=== PATIENT | female | born 1955 | race Caucasian/White ===

== ENCOUNTER → 2016-05-17 | Outpatient (CLI) | payer OTHER ==
[~2016-05-17] MED LIST: CIPR500T4 PO; DIET PILL; HYDR-3720 PO; HYDR1TAB PO; LEVO125T; LVT.025T PO; ONDA8TAB13 PO; PHEN200T27 PO; TRAM50TA2; TRAM50TA2 PO
--- OUTSIDE RECORDS SUMMARY | 2016-05-17 13:22 | XMS REPORT | Continuity of Care Document ---
Author Author [facility] Organization [facility] Address Unknown Phone Unavailable Care Team Providers Care Sour Bleaching Pleater Name Role Phone MACK CROW MD PCP Insurance Providers Payer Name Policy Number Subscriber Name Relationship UMR [id number] Nely Jarquin 18 Self / Same As Patient Advance Directives Directive Response Recorded Date/Time Advance Directives No 01/09/14 12:52pm Health Care Power of Labor Economics Professor No 01/09/14 12:52pm Organ Donor Yes 01/09/14 12:52pm Resuscitation Status Full Code 01/09/14 12:52pm Problems Medical Problems Problem Onset Date Status Ureterolithiasis Unknown Active Medications Medication Dose Route Sig Days/Qty Instructions Order Date Discontinued Date Status Levothyroxine Sodium 12/29/08 12/29/08 Discontinued Levothyroxine Sodium 100 Mcg PO DAILY 12/29/08 Active Tramadol Hcl 50 08/11/09 01/09/14 Discontinued Acetaminophen/Hydrocodone Bitart 1 - 2 Each PO Q4HR PRN 20 Qty 01/09/14 Discontinued [Diet Pill] 01/09/14 Active Phenazopyridine HCl 1 Each PO THREE TIMES A DAY PRN SPASMS 15 Qty 01/09 Active Ciprofloxacin Hcl 500 Mg PO TWICE A DAY 20 Qty 01/09/14 Active Hydrocodone Bit/Acetaminophen 1 Tab PO EVERY 4HRS PRN PAIN 14 Qty 01/09 Active Ondansetron 8 Mg PO EVERY 6 HOURS PRN NAUSEA/VOMITING 10 Qty 01/09/14 Active Social History Social History Problem Response Recorded Date/Time Alcohol Use Denies Use 01/09/2014 12:52pm Recreational Drug Use No 01/09/2014 12:52pm Recent Foreign Travel No 01/09/2014 12:46pm Recent Infectious Disease Exposure No 01/09/2014 12:46pm Smoking Status Current Everyday Smoker 01/09/2014 12:52pm Query Response Start Date Stop Date Smoking Status Current Everyday Smoker Hospital Discharge Instructions No hospital discharge instructions. Plan of Care No plan of care. Functional Status No functional status results. Allergies, Adverse Reactions, Alerts Allergen Type Severity Reaction Status Last Updated No Known Drug Allergies Active 12/29/08 Immunizations No immunization records. Vital Signs Acute Vital Signs Vital Response Date/Time Temperature (Fahrenheit) 97.2 degrees F (97.6 - 99.5) Temperature (Calculated Celsius) 36.45200 degrees C (36.4 - 37.5) Temperature Source Temporal Pulse Rate (adult) 76 bpm (60 - 90) Respiratory Rate 18 bpm (12 - 24) O2 Sat by Pulse Oximetry 100 % (88 - 100) Blood Pressure 172/93 mm Hg Pain Pain Intensity 6 Height (Feet) 5 feet Height (Inches) 7 inches Height (Calculated Centimeters) 170.877442 cm Weight (Pounds) 180 pounds Weight (Calculated Kilograms) 81.098633 kilograms Calculated BMI 28.19 Results Test Source Date Result Interp. Ref. Range Comments Alanine Aminotransferase (ALT/SGPT) August 11, 2009 3:22pm 26 U/L L 30-65 Albumin August 11, 2009 3:22pm 3.6 G/DL N 3.4-5.0 Alkaline Phosphatase August 11, 2009 3:22pm 106 U/L N 50-136 Aspartate Amino Transf (AST/SGOT) August 11, 2009 3:22pm 26 U/L N 15-37 BUN/Creatinine Ratio August 12, 2009 4:47pm 24 - Basophils # (Auto) August 12, 2009 4:47pm 0.0 10^3/uL N 0.0-0.1 Comments to Respiratory Therapy Aide: N Basophils (%) (Auto) August 12, 2009 4:47pm 0 % N 0-10 Comments to Respiratory Therapy Aide: N Blood Urea Nitrogen August 12, 2009 4:47pm 19 MG/DL H 7-18 Calcium Level August 12, 2009 4:47pm 9.8 MG/DL N 8.5-10.1 Carbon Dioxide Level August 12, 2009 4:47pm 29 MMOL/L N 21-32 Chloride Level August 12, 2009 4:47pm 105 MMOL/L N 101-110 Creatinine August 12, 2009 4:47pm 0.8 MG/DL N 0.6-1.3 Eosinophils # (Auto) August 12, 2009 4:47pm 0.1 10^3/uL N 0.0-0.3 Comments to Respiratory Therapy Aide: N Eosinophils (%) (Auto) August 12, 2009 4:47pm 1 % N 0-10 Comments to Respiratory Therapy Aide: N Glucose Level August 12, 2009 4:47pm 112 MG/DL N 70-126 Hematocrit August 12, 2009 4:47pm 40 % N 35-52 Comments to Respiratory Therapy Aide: N Hemoglobin August 12, 2009 4:47pm 13.9 G/DL N 11.5-16.0 Comments to Respiratory Therapy Aide: N Lymphocytes # (Auto) August 12, 2009 4:47pm 1.9 X 10^3 N 1.0-4.0 Comments to Respiratory Therapy Aide: N Lymphocytes (%) (Auto) August 12, 2009 4:47pm 14 % N 12-44 Comments to Respiratory Therapy Aide: N Mean Corpuscular Hemoglobin August 12, 2009 4:47pm 31 PG N 25-34 Comments to Respiratory Therapy Aide: N Mean Corpuscular Hemoglobin Concent August 12, 2009 4:47pm 35 G/DL N 32-36 Comments to Respiratory Therapy Aide: N Mean Corpuscular Volume August 12, 2009 4:47pm 90 FL N 80-99 Comments to Respiratory Therapy Aide: N Mean Platelet Volume August 12, 2009 4:47pm 9.4 FL N 7.4-10.4 Comments to Respiratory Therapy Aide: N Monocytes # (Auto) August 12, 2009 4:47pm 1.1 X 10^3 H 0.0-1.0 Comments to Respiratory Therapy Aide: N Monocytes (%) (Auto) August 12, 2009 4:47pm 8 % N 0-12 Comments to Respiratory Therapy Aide: N Neutrophils # (Auto) August 12, 2009 4:47pm 10.7 X 10^3 H 1.8-7.8 Comments to Respiratory Therapy Aide: N Neutrophils (%) (Auto) August 12, 2009 4:47pm 77 % H 42-75 Comments to Respiratory Therapy Aide: N Number of Stones August 14, 2009 4:44pm 2 - Platelet Count August 12, 2009 4:47pm 338 10^3/uL N 130-400 Comments to Respiratory Therapy Aide: N Potassium Level August 12, 2009 4:47pm 4.1 MMOL/L N 3.6-5.0 Red Blood Count August 12, 2009 4:47pm 4.42 10^6/uL N 4.35-5.85 Comments to Respiratory Therapy Aide: N Red Cell Distribution Width August 12, 2009 4:47pm 12.6 % N 10.0-14.5 Comments to Respiratory Therapy Aide: N Sodium Level August 12, 2009 4:47pm 140 MMOL/L N 135-145 Stone Brushite September 07, 2009 10:00am 3.55 H - Stone Calcium September 07, 2009 10:00am 351 H MG/DAY - Stone Composition August 14, 2009 4:44pm SEE FOOTNOTE % - Calculi composed primarily of:70% calcium oxalate monohydrate, 20% calcium oxalate dihydrate, and 10% calcium phosphate (hydroxy- and carbonate- apatite). Performed by [facility], [address] [place] [id number] [email or web address], Alejandrina Urena MD Lab. Director Stone Oxalate September 07, 2009 10:00am 32 MG/DAY - Stone Size August 14, 2009 4:44pm 1 to 4 MM - Stone Sodium Acid Urate September 07, 2009 10:00am 4.29 H - Stone Struvite September 07, 2009 10:00am 3.09 - Stone Uric Acid September 07, 2009 10:00am 561 MG/DAY - Stone Weight August 14, 2009 4:44pm 13 MG - TEST INFORMATION: Calculi ( Stone) analysis Human and/oranimal calculi are the products of physiological processes that yield crystalline compounds in a matrix of biological compounds and blood. The clinically significant crystalline components identified in calculi samples are documented on the sample report. Matrix components are not reported. For related information, see [id number] Total Bilirubin August 11, 2009 3:22pm 0.4 MG/DL N 0.0-1.0 Total Protein August 11, 2009 3:22pm 7.3 G/DL N 6.4-8.2 Urine Ammonium 24 Hour September 07, 2009 10:00am 21 MEQ/DAY - Urine Bacteria August 11, 2009 2:50pm FEW H - Has specimen been collected/ obtained? YSpecimen Description CLEAN CATCH Urine Bilirubin August 11, 2009 2:50pm NEGATIVE - Has specimen been collected/obtained? YSpecimen Description CLEAN CATCH Urine Casts August 11, 2009 2:50pm NONE - Has specimen been collected/ obtained? YSpecimen Description CLEAN CATCH Urine Citrate 24 Hour September 07, 2009 10:00am 1702 MG/DAY - Urine Clarity August 11, 2009 2:50pm SLIGHTLY CLOUDY - Has specimen been collected/obtained? YSpecimen Description CLEAN CATCH Urine Color August 11, 2009 2:50pm YELLOW - Has specimen been collected/ obtained? YSpecimen Description CLEAN CATCH Urine Creatinine 24 Hour September 07, 2009 10:00am 1141 MG/DAY - Urine Crystals August 11, 2009 2:50pm NONE - Has specimen been collected /obtained? YSpecimen Description CLEAN CATCH Urine Culture Indicated August 11, 2009 2:50pm NO - Has specimen been collected/obtained? YSpecimen Description CLEAN CATCH Urine Glucose (UA) August 11, 2009 2:50pm NEGATIVE - Has specimen been collected/obtained? YSpecimen Description CLEAN CATCH Urine Ketones August 11, 2009 2:50pm NEGATIVE - Has specimen been collected/obtained? YSpecimen Description CLEAN CATCH Urine Leukocyte Esterase August 11, 2009 2:50pm TRACE H - Has specimen been collected/obtained? YSpecimen Description CLEAN CATCH Urine Magnesium 24 Hour September 07, 2009 10:00am 149 MG/DAY - Urine Mucus August 11, 2009 2:50pm LARGE H - Has specimen been collected/ obtained? YSpecimen Description CLEAN CATCH Urine Nitrite August 11, 2009 2:50pm NEGATIVE - Has specimen been collected/obtained? YSpecimen Description CLEAN CATCH Urine Other August 11, 2009 2:50pm FEW SPERM H - Has specimen been collected/obtained? YSpecimen Description CLEAN CATCH Urine Phosphorus 24 Hour September 07, 2009 10:00am 814 MG/DAY - Urine Potassium 24 Hour September 07, 2009 10:00am 47 MEQ/DAY - Urine Test August 14, 2009 8:35am NEGATIVE - Urine Protein August 11, 2009 2:50pm TRACE - Has specimen been collected /obtained? YSpecimen Description CLEAN CATCH Urine RBC August 11, 2009 2:50pm 25-50 /HPF H - Has specimen been collected/obtained? YSpecimen Description CLEAN CATCH Urine Sodium 24 Hour September 07, 2009 10:00am 246 H MEQ/DAY - Urine Specific [place] August 11, 2009 2:50pm 1.015 L - Has specimen been collected/obtained? YSpecimen Description CLEAN CATCH Urine Squamous Epithelial Cells August 11, 2009 2:50pm 5-10 - Has specimen been collected/obtained? YSpecimen Description CLEAN CATCH Urine Total Volume 24 Hours September 07, 2009 10:00am 1.59 L L/DAY - Urine Urobilinogen August 11, 2009 2:50pm NORMAL MG/DL - Has specimen been collected/obtained? YSpecimen Description CLEAN CATCH Urine WBC August 11, 2009 2:50pm 2-5 /HPF - Has specimen been collected/ obtained? YSpecimen Description CLEAN CATCH Urine pH August 11, 2009 2:50pm 6.5 - Has specimen been collected/ obtained? YSpecimen Description CLEAN CATCH White Blood Count August 12, 2009 4:47pm 13.9 10^3/uL H 4.3-11.0 Comments to Respiratory Therapy Aide: N Urine Stone Risk September 07, 2009 10:00am SEE FOOTNOTE - HYPERCALCIURIC NEPHROLITHIASISGraphical report will follow under separate cover. Citric Acid: this test(s) was performed using a kit that has not been cleared or approved by the FDA. The analytical performance characteristics of this test have been determined by [facility]. This test should not be used for diagnosis without confirmation by other medically established means. THIS TEST WAS PERFORMED AT: [facility] [address] [place] [id number] Ben Bernard MD, FCAP Stone Calcium Oxalate September 07, 2009 10:00am 1.91 - Lab Scanned Report September 07, 2009 3:33pm Referred Lab Report [id number] - Estimat Glomerular Filtration Rate August 11, 2009 3:22pm > 60 - GFR INTERPRETIVE DATA UNITS FOR ESTIMATED GFR (eGFR): mL/min/1.73 M2 REFERENCE RANGE FOR ESTIMATED GFR (eGFR) eGFR NORMAL eGFR >60 MODERATELY DECREASED eGFR 30-59 SEVERLY DECREASED eGFR 15-29 KIDNEY FAILURE <15 (OR DIALYSIS) Urine Uric Acid Saturation Ratio September 07, 2009 10:00am 0.38 - Urine Stone Risk Review September 07, 2009 10:00am SEE FOOTNOTE - HYPERCALCIURIA, LOW URINE VOLUME, HIGH URINARY SODIUM Urine pH 24 Hour September 07, 2009 10:00am 6.7 - Urine Supersaturation Interpret September 07, 2009 10:00am SEE FOOTNOTE - BRUSHITE (CA PHOSPHATE), MONOSODIUM URATE Urine RBC (Auto) August 11, 2009 2:50pm 3+ H - Has specimen been collected /obtained? YSpecimen Description CLEAN CATCH Stone Description August 14, 2009 4:44pm SEE FOOTNOTE - Specimen consists of two, small, brown/miller,irregular calculi fragments. Urine Sulfites September 07, 2009 10:00am 18 MMOL/DAY - MRSA Screen Nasal August 14, 2009 8:35am MRSA not isolated Procedures No known history of procedures. Encounters Encounter Location Date/Time Departed Emergency Room Via [facility] 01/09/14 12:32pm Recent Diagnosis
--- NOTE | 2016-05-18 10:08 | ECHOCARDIOGRAPHY REPORT ---
PROCEDURE PHYSICIAN: TIM VARMA DATE OF PROCEDURE: 05/17/2016 TWO DIMENSIONAL ECHOCARDIOGRAM REPORT PRIMARY PHYSICIAN: OTHER PHYSICIAN: REFERRING PHYSICIAN: Dr. Jimenez ORDERING PHYSICIAN: INDICATION FOR THE PROCEDURE: Hypertension. MEASUREMENTS DERIVED VALUES LV DIAMETER (LAX) NORMALS NORMALS Diastolic 3.5 (3.6-5.2) Eject. Fract. 60% (60%+/-6%) Systolic (2.3-3.9) Diastolic Vol. % Shortening (0.22-0.42) Systolic Vol. Aortic Root IVS THICKNESS Diastolic 1. (0.6-1.1) LVPW THICKNESS Diastolic 1. (0.6-1.1) LA DIAMETER Systolic 3. (2.1-3.7) FINDINGS: 1. Technical quality is good. 2. The left ventricle is normal in size with normal contractility. Systolic function appeared to be normal. Estimated ejection fraction 60%. 3. The left atrium is normal in size. No clot or thrombus were seen within the left atrium. 4. The right atrium and right ventricle are normal in size. No clot or thrombus were seen within the right side. 5. Mitral valve is normal in morphology with mild mitral regurgitation noted by color Doppler flow. No mitral valve prolapse. No mitral valve stenosis. 6. Aortic valve is trileaflet with normal opening and closing pattern. No significant aortic stenosis or regurgitation was seen. 7. Tricuspid valve is normal in morphology with mild tricuspid regurgitation noted by color Doppler flow. Doppler across tricuspid valve estimated pulmonary artery pressure of 24+ right atrial pressure. 8. Pulmonic valve is functioning normally. 9. No pericardial effusion. CONCLUSION: 1. Normal left ventricular size and systolic function. Estimated ejection fraction 60%. 2. Mild mitral and tricuspid regurgitation. 3. Estimated pulmonary artery pressure of 30 mmHg. Job ID: [id number] Dictated Date: 05/18/2016 08:21:45 Director Of Maintenance Date: 05/18/2016 10:04:05 / bigg
== END ==
LOC: CARD 09:31
PROVIDERS: ATTEND Internal Medicine Cardiovascular Disease
DX: E78.2 Mixed hyperlipidemia (principal); R00.2 Palpitations; Z72.0 Tobacco use; E03.9 Hypothyroidism, unspecified; R42 Dizziness and giddiness; Z82.49 Family history of ischemic heart disease and other diseases of the circulatory system
CPT/HCPCS: 93306

== ENCOUNTER → 2016-05-18 | Outpatient (CLI) | payer OTHER ==
[~2016-05-18] MED LIST changes: +CATHETER FLUSH 10 ML SYR IV PRN
--- OUTSIDE RECORDS SUMMARY | 2016-05-18 07:54 | XMS REPORT | Continuity of Care Document ---
Author Author [facility] Organization [facility] Address Unknown Phone Unavailable Care Team Providers Care Academic Affairs Coordinator Name Role Phone MACK CROW MD PCP Insurance Providers Payer Name Policy Number Subscriber Name Relationship UMR [id number] Nely Jarquin 18 Self / Same As Patient Advance Directives Directive Response Recorded Date/Time Advance Directives No 01/09/14 12:52pm Health Care Power of Accounts Payable Supervisor No 01/09/14 12:52pm Organ Donor Yes 01/09/14 [...] F (97.6 - 99.5) Temperature (Calculated Celsius) 36.58654 degrees C (36.4 - 37.5) Temperature Source Temporal Pulse Rate (adult) 76 bpm (60 - 90) Respiratory Rate 18 bpm (12 - 24) O2 Sat by Pulse Oximetry 100 % (88 - 100) Blood Pressure 172/93 mm Hg Pain Pain Intensity 6 Height (Feet) 5 feet Height (Inches) 7 inches Height (Calculated Centimeters) 170.490429 cm Weight (Pounds) 180 pounds Weight (Calculated Kilograms) 81.296589 kilograms Calculated BMI 28.19 Results Test Source [...] 4:47pm 0.0 10^3/uL N 0.0-0.1 Comments to [employer]: N Basophils (%) (Auto) August 12, 2009 4:47pm 0 % N 0-10 Comments to [employer]: N Blood Urea Nitrogen August 12, 2009 [...] 4:47pm 0.1 10^3/uL N 0.0-0.3 Comments to [employer]: N Eosinophils (%) (Auto) August 12, 2009 4:47pm 1 % N 0-10 Comments to [employer]: N Glucose Level August 12, 2009 4:47pm 112 MG/DL N 70-126 Hematocrit August 12, 2009 4:47pm 40 % N 35-52 Comments to [employer]: N Hemoglobin August 12, 2009 4:47pm 13.9 G/DL N 11.5-16.0 Comments to [employer]: N Lymphocytes # (Auto) August 12, 2009 4:47pm 1.9 X 10^3 N 1.0-4.0 Comments to [employer]: N Lymphocytes (%) (Auto) August 12, 2009 4:47pm 14 % N 12-44 Comments to [employer]: N Mean Corpuscular Hemoglobin August 12, 2009 4:47pm 31 PG N 25-34 Comments to [employer]: N Mean Corpuscular Hemoglobin Concent August 12, 2009 4:47pm 35 G/DL N 32-36 Comments to [employer]: N Mean Corpuscular Volume August 12, 2009 4:47pm 90 FL N 80-99 Comments to [employer]: N Mean Platelet Volume August 12, 2009 4:47pm 9.4 FL N 7.4-10.4 Comments to [employer]: N Monocytes # (Auto) August 12, 2009 4:47pm 1.1 X 10^3 H 0.0-1.0 Comments to [employer]: N Monocytes (%) (Auto) August 12, 2009 4:47pm 8 % N 0-12 Comments to [employer]: N Neutrophils # (Auto) August 12, 2009 4:47pm 10.7 X 10^3 H 1.8-7.8 Comments to [employer]: N Neutrophils (%) (Auto) August 12, 2009 4:47pm 77 % H 42-75 Comments to [employer]: N Number of Stones August 14, 2009 4:44pm 2 - Platelet Count August 12, 2009 4:47pm 338 10^3/uL N 130-400 Comments to [employer]: N Potassium Level August 12, 2009 4:47pm 4.1 MMOL/L N 3.6-5.0 Red Blood Count August 12, 2009 4:47pm 4.42 10^6/uL N 4.35-5.85 Comments to [employer]: N Red Cell Distribution Width August 12, 2009 4:47pm 12.6 % N 10.0-14.5 Comments to [employer]: N Sodium Level August 12, 2009 4:47pm 140 MMOL/L N 135-145 Stone Brushite September 07, 2009 10:00am 3.55 H - Stone Calcium September 07, 2009 10:00am 351 H MG/DAY - Stone Composition August 14, 2009 4:44pm SEE FOOTNOTE % - Calculi composed primarily of:70% calcium oxalate monohydrate, 20% calcium oxalate dihydrate, and 10% calcium phosphate (hydroxy- and carbonate- apatite). Performed by [facility], [address] [place] [id number] [email or web address], Alejandrina Urena MD Lab. Director Stone Oxalate [...] are not reported. For related information, see [id number] Total Bilirubin August 11, 2009 3:22pm 0.4 [...] 10:00am 246 H MEQ/DAY - Urine Specific [place] August 11, 2009 2:50pm 1.015 L - [...] 4:47pm 13.9 10^3/uL H 4.3-11.0 Comments to [employer]: N Urine Stone Risk September 07, 2009 [...] THIS TEST WAS PERFORMED AT: [facility] [address] [place] [id number] Ben Bernard MD, FCAP Stone Calcium Oxalate September 07, 2009 10:00am 1.91 - Lab Scanned Report September 07, 2009 3:33pm Referred Lab Report [id number] - Estimat Glomerular Filtration Rate August 11, [...] Encounter Location Date/Time Departed Emergency Room Via [facility] 01/09/14 12:32pm Recent Diagnosis
[2016-05-18 09:35] VITALS: BP 188/90
--- NOTE | 2016-05-18 15:07 | STRESS TEST ---
PROCEDURE PHYSICIAN: TIM VARMA EXERCISE MYOVIEW STRESS TEST DATE OF PROCEDURE: 05/18/2016 REFERRING PHYSICIAN: Dr. Jimenez. INDICATION FOR THE PROCEDURE: Hyperlipidemia, bradycardia. Baseline heart rate: 57 baseline blood pressure: 134/77. Baseline EKG: Sinus rhythm with no ischemic changes. SUMMARY: The patient was injected with 10.98 mCi of technetium 99 Myoview and the resting images were obtained. Then the patient started exercising with a baseline heart rate, blood pressure and EKG mentioned above. At minute 4, the patient was injected with 31.8 mCi of technetium 99 Myoview. The patient was able to finish a total of 5 minutes on standard Mundo protocol, achieving maximum heart rate of 144, which is 91% of maximum expected heart rate. With peak exercise level, blood pressure was 188/90, EKG was showing minimal nondiagnostic changes. During recovery, heart rate and blood pressure returned to baseline. EKG returned to baseline. The resting and stress images were reviewed and compared in the short axis, horizontal long axis, and vertical long axis views. Review of the images showed good radiotracer uptake with no ischemia or infarction on SPECT images. SSS is 0. TID value 0.91. On the gated images, the left ventricle appeared to be normal size with normal contractility. Calculated ejection fraction 70%. CONCLUSION: 1. Fair exercise tolerance a total of 5 minutes on standard Mundo protocol. Total 7 METs achieving 91% of maximum expected heart rate. 2. Appropriate heart rate and blood pressure response to exercise. Returned to baseline during recovery. 3. Nondiagnostic EKG changes with exercise. Returned to baseline during recovery. 4. No ischemia or infarction on SPECT images. 5. Normal left ventricular size with normal contractility. Calculated ejection fraction 70%. Job ID: [id number] Dictated Date: 05/18/2016 13:56:00 Tumbler Tender Date: 05/18/2016 15:03:52 / bigg
== END ==
LOC: CARD 07:51
PROVIDERS: ATTEND Internal Medicine Cardiovascular Disease
DX: E78.2 Mixed hyperlipidemia (principal); R00.2 Palpitations; E03.9 Hypothyroidism, unspecified; R42 Dizziness and giddiness; Z72.0 Tobacco use; Z82.49 Family history of ischemic heart disease and other diseases of the circulatory system
CPT/HCPCS: 78452; 93017

== ENCOUNTER 2018-11-18 14:23 | Inpatient (IN) | payer OTHER ==
[~2018-11-18] VITALS: Ht 170.2 cm; Wt 88.9 kg
[~2018-11-18 14:23] MED LIST changes: -CATHETER FLUSH 10 ML SYR IV PRN; +CLOPIDOGREL 300 MG (PLAVIX) TABLET PO ONE; +HEParin 1000 UNIT/ML (10ML VIAL) FOR BOLUS ONE; +HEParin DRIP 25000 UNIT/500ML 500 ML IV ONE; +fentaNYL INJECTION 100 MCG/2 ML AMP ONE
[2018-11-18] MEDS ORDERED: morphine INJ 10 MG/ML 1ML (SYR OR VIAL) IV STA (14:29)
[2018-11-18] MEDS ORDERED: CLOPIDOGREL 300 MG (PLAVIX) TABLET PO ONE ×2 (14:30→16:20)
[2018-11-18] MEDS ORDERED: HEParin 1000 UNIT/ML (10ML VIAL) FOR BOLUS IV SCH (14:30)
[2018-11-18] MEDS ORDERED: NS IV 1000 ML 1,000 ML IV ONE ×2 (14:34→15:33)
[2018-11-18] MEDS ORDERED: ATROPINE INJECTION 1 MG/10 ML SYR (ABBOTT) INJ ONE (14:38)
[2018-11-18] MEDS ORDERED: EPINEPHrine 0.1 MG/ML 10 ML (HOSPIRA) SYR IJ ONE (14:38)
--- NOTE | 2018-11-18 14:42 | ED Chest Pain ---
General Chief Complaint: Cardiac/General Problems Stated Complaint: STEMI Nursing Triage Note: ARRIVED VIA EMS FROM HOME WITH COMPLAINTS OF CHEST PAIN X 1.H HOUR. ASA 324 MG GIVEN IN ROUTE ET X1 NITRO AT HOME NO OTHER GIVEN NITRO GIVEN DUE TO HYPOTENSION Nursing Sepsis Screen: No Definite Risk Source: patient, EMS History of Present Illness Date Seen by Provider: Nov 18, 2018 Time Seen by Provider: 14:23 Initial Comments PT ARRIVES VIA [facility] FROM HOME C/O CHEST PAIN IN CENTER OF CHEST, BEGAN APPROXIMATELY 1 1/2 HOURS AGO, WHILE DOING DISHES + SWEATS + NAUSEA, VOMITED X 1 NO SHORTNESS OF BREATH C/O GENERALIZED WEAKNESS NO SYNCOPE NO PALPITATIONS NO DIZZINESS NO HISTORY OF SIMILAR HAS HISTORY OF HTN, OTHERWISE NO CARDIAC HISTORY BOYFRIEND GAVE HER 2 OF HIS NTG WITHOUT RELIEF PT WAS HYPOTENSIVE ON EMS ARRIVAL AT [facility] GAVE 324 MG ASPIRIN, BUT NO NTG AND NO PAIN MEDICATION DUE TO HYPOTENSION Allergies and Home Medications Allergies Coded Allergies: No Known Drug Allergies (Verified , 12/29/08) Home Medications Ciprofloxacin Hcl 500 Mg Tablet, 500 MG PO BID Prescribed by: ZAMZAM SALEEM on 01/09/14 1440 Hydrocodone Bit/Acetaminophen 1 Tab Tablet, 1 TAB PO Q4H PRN for PAIN Prescribed by: ZAMZAM SALEEM on 01/09/14 1440 Levothyroxine Sodium 25 Mcg Tablet, 100 MCG PO DAILY, (Reported) Ondansetron 8 Mg Tab.rapdis, 8 MG PO Q6H PRN for NAUSEA/VOMITING Prescribed by: ZAMZAM SALEEM on 01/09/14 1448 Phenazopyridine Hcl 200 Mg Tablet, 1 EACH PO TID PRN for SPASMS Prescribed by: ZAMZAM SALEEM on 01/09/14 1440 Tramadol Hcl 50 Mg Tablet, 50-100 MG PO Q6H PRN for PAIN Prescribed by: JEFF HALLMAN on 06/30/14 1050 Patient Home Medication List Home Medication List Reviewed: Yes Review of Systems Review of Systems Constitutional: see HPI, diaphoresis, malaise, weakness Respiratory: No Symptoms Reported; Denies Shortness of Air Cardiovascular: See HPI, Chest Pain; Denies Edema, Denies Irregular Heart Rate, Denies Lightheadedness, Denies Palpitations, Denies Syncope Gastrointestinal: See HPI; Denies Abdominal Pain; Nausea, Vomiting Genitourinary: No Symptoms Reported Musculoskeletal: no symptoms reported Skin: no symptoms reported Psychiatric/Neurological: No Symptoms Reported Endocrine: No Symptoms Reported Hematologic/Lymphatic: No Symptoms Reported Past Wflwtjh-Kdjxun-Xuiafy Hx Patient Social History Alcohol Use: Occasionally Uses Recreational Drug Use: No Smoking Status: Current Everyday Smoker (1/2 PPD) Recent Foreign Travel: No Contact w/Someone Who Travel: No Recent Infectious Disease Expo: No Recent Hopitalizations: Yes Immunizations Up To Date Tetanus Booster (TDap): Unknown Past Medical History Surgeries: Yes (HYST/BSO; LEFT ANKLE FX/REPAIR; BTL; LAP CHOLECYSTECTOMY; LITHOTRIPSY) Gallbladder, Hysterectomy, Oophorectomy, Orthopedic, Renal, Tubal Ligation Respiratory: No Cardiac: Yes Hypertension Neurological: No Reproductive Disorders: No Genitourinary: Yes Kidney Stones Gastrointestinal: No Musculoskeletal: Yes (FX OF LEFT ANKLE) Fractures Endocrine: Yes Hypothyroidsim HEENT: No Cancer: No Psychosocial: No Integumentary: No Blood Disorders: No Family Medical History Patient reports no known family medical history. Physical Exam Vital Signs Vital Signs - First Documented 11/18/18 11/18/18 14:23 14:32 Temp 98.0 Pulse 49 Resp 16 B/P (MAP) 87/59 (68) Pulse Ox 98 O2 Delivery Room Air O2 Flow Rate 2.00 Capillary Refill : Less Than 3 Seconds Height, Weight, BMI Height: 5'7.00" Weight: 181lbs. oz. 82.378094cj; BMI Method:Stated General Appearance: Mild Distress, Obese, Other (APPEARS LETHARGIC, SKIN DAMP AND PALE) Neck: Normal Inspection Respiratory: Normal Breath Sounds, No Accessory Muscle Use, No Respiratory Distress Cardiovascular: Regular Rate, Rhythm, No Edema, No JVD, No Murmur, Normal Peripheral Pulses Gastrointestinal: Non Tender, Soft Extremity: Normal Capillary Refill, Normal Inspection, Normal Range of Motion, Non Tender, No Calf Tenderness, No Pedal Edema Neurologic/Psychiatric: Alert, Oriented x3, No Motor/Sensory Deficits, lamps tester and inspector II- XII Norm as Tested Skin: Cool, Damp, Pallor Critical Care Note Critical Care Start Time: 14:23 Stop Time: 15:05 Progress/Results/Core Measures Results/Orders Lab Results Laboratory Tests Test 11/18/18 14:30 Range/Units White Blood Count 15.0 H 4.3-11.0 10^3/uL Red Blood Count 4.44 4.35-5.85 10^6/uL Hemoglobin 13.5 11.5-16.0 G/DL Hematocrit 41 35-52 % Mean Corpuscular Volume 91 80-99 FL Mean Corpuscular Hemoglobin 30 25-34 PG Mean Corpuscular Hemoglobin Concent 33 32-36 G/DL Red Cell Distribution Width 12.9 10.0-14.5 % Platelet Count 359 130-400 10^3/uL Mean Platelet Volume 9.3 7.4-10.4 FL Neutrophils (%) (Auto) 62 42-75 % Lymphocytes (%) (Auto) 28 12-44 % Monocytes (%) (Auto) 7 0-12 % Eosinophils (%) (Auto) 3 0-10 % Basophils (%) (Auto) 0 0-10 % Neutrophils # (Auto) 9.2 H 1.8-7.8 X 10^3 Lymphocytes # (Auto) 4.2 H 1.0-4.0 X 10^3 Monocytes # (Auto) 1.1 H 0.0-1.0 X 10^3 Eosinophils # (Auto) 0.5 H 0.0-0.3 10^3/uL Basophils # (Auto) 0.1 0.0-0.1 10^3/uL Neutrophils % (Manual) 60 % Lymphocytes % (Manual) 29 % Monocytes % (Manual) 7 % Eosinophils % (Manual) 3 % Basophils % (Manual) 0 % Band Neutrophils 4 % Blood Morphology Comment NORMAL Prothrombin Time 13.1 12.2-14.7 SEC INR Comment 1.0 0.8-1.4 Activated Partial Thromboplast Time 22 L 24-35 SEC Sodium Level 142 135-145 MMOL/L Potassium Level 3.8 3.6-5.0 MMOL/L Chloride Level 107 98-107 MMOL/L Carbon Dioxide Level 21 21-32 MMOL/L Anion Gap 14 5-14 MMOL/L Blood Urea Nitrogen 16 7-18 MG/DL Creatinine 1.01 0.60-1.30 MG/DL Estimat Glomerular Filtration Rate 55 BUN/Creatinine Ratio 16 Glucose Level 138 H 70-105 MG/DL Calcium Level 9.6 8.5-10.1 MG/DL Corrected Calcium 9.7 8.5-10.1 MG/DL Magnesium Level 1.8 1.6-2.4 MG/DL Total Bilirubin 0.5 0.1-1.0 MG/DL Aspartate Amino Transf (AST/SGOT) 14 5-34 U/L Alanine Aminotransferase (ALT/SGPT) 15 0-55 U/L Alkaline Phosphatase 92 40-136 U/L Total Creatine Kinase 48 29-168 U/L Creatine Kinase MB 1.6 <6.6 NG/ML Myoglobin 38.0 10.0-92.0 NG/ML Troponin I 0.059 H <0.028 NG/ML B-Type Natriuretic Peptide 34.4 <100.0 PG/ML Total Protein 6.8 6.4-8.2 GM/DL Albumin 3.9 3.2-4.5 GM/DL Amylase Level 27 25-125 U/L Lipase 15 8-78 U/L My Orders Orders - AVTAR MAC DO Fentanyl Injection (Sublimaze Injection (11/18/18 14:22) Heparin (Bolus Per Protocol) (Heparin (B (11/18/18 14:22) Heparin Drip 97326 Unit/500ml (Heparin (11/18/18 14:22) Clopidogrel Tablet (Plavix Tablet) (11/18/18 14:30) Heparin (Bolus Per Protocol) (Heparin (B (11/18/18 14:30) Cbc With Automated Diff (11/18/18 14:29) Magnesium (11/18/18 14:29) Chest 1 View, Ap/Pa Only (11/18/18 14:29) Ekg Tracing (11/18/18 14:29) Cardiac Profile 1 (11/18/18 14:29) Comprehensive Metabolic Panel (11/18/18 14:29) Myoglobin Serum (11/18/18 14:29) Protime With Inr (11/18/18 14:29) Partial Thromboplastin Time (11/18/18 14:29) O2 (11/18/18 14:29) Monitor-Rhythm Ecg Trace Only (11/18/18 14:29) Lipid Panel (11/19/18 06:00) Ed Iv/Invasive Line Start (11/18/18 14:29) Creatine Kinase (11/18/18 14:29) Creatine Kinase Mb (11/18/18 14:29) Lipase (11/18/18 14:29) Amylase (11/18/18 14:29) BNP (11/18/18 14:29) Morphine Injection (Morphine Injection (11/18/18 14:29) Clopidogrel Tablet (Plavix Tablet) (11/18/18 14:23) Fentanyl Injection (Sublimaze Injection (11/18/18 14:45) Ed Iv/Invasive Line Start (11/18/18 14:34) Ns Iv 1000 Ml (Sodium Chloride 0.9%) (11/18/18 14:34) Ekg Tracing (11/18/18 14:34) Manual Differential (11/18/18 14:30) Medications Given in ED Current Medications Medications Dose Ordered Sig/Shantal Route Start Time Stop Time Status Last Admin Dose Admin Clopidogrel Bisulfate 300 mg ONCE ONCE PO 11/18/18 14:30 11/18/18 14:33 DC 11/18/18 14:33 300 MG Sodium Chloride 1,000 ml @ 0 mls/hr Q0M ONCE IV 11/18/18 14:34 11/18/18 14:36 DC 11/18/18 14:42 1,000 MLS/HR Vital Signs/I&O 11/18/18 11/18/18 14:23 14:32 Temp 98.0 Pulse 49 Resp 16 B/P (MAP) 87/59 (68) Pulse Ox 98 O2 Delivery Room Air Nasal Cannula O2 Flow Rate 2.00 Blood Pressure Mean: 68 Progress Progress Note : Progress Note BP CONTINUED TO DROP, DESPITE INITIATING FLUIDS. DOPAMINE DRIP STARTED PT HAD INCREASED DIAPHORESIS--NOW IS PROFUSELY DIAPHORETIC, VERY PALE, AND MORE LETHARGIC. PT ALSO BEGAN TO HAVE NAUSEA AND DRY HEAVES--GIVEN ZOFRAN ATROPINE ORDERED BY DR. BRONSON Initial ECG Impression Date: Nov 18, 2018 Initial ECG Impression Time: 14:26 Initial ECG Rate: 48 Initial ECG Rhythm: S.Corby Initial ECG Impression: Acute ME (INFERIOR) EKG : EKG Time: 14:33 Rate: 48 Rhythm: S.Corby ECG Impression: Acute ME (INFEREIOR) Diagnostic Imaging Comments CXR--LOW LUNG VOLUMES, LIMITED EXAM--PER RADIOLOGIST REPORT AT 1505 Reviewed: Reviewed by Me Departure Communication (Admissions) 1426--SPOKE WITH DR. BRONSON, CRANE HELPER. ADVISES TO CALL IN WELDER SETTER ELECTRON BEAM MACHINE STAFF. ORDERS FOR HEPARIN, PLAVIX, MORPHINE, ASPIRIN NOTED--ASPIRIN HAD ALREADY BEEN GIVEN BY EMS. 1426--CALLED WOODWORKING MACHINE OPERATOR, TO CALL IN WELDER SETTER ELECTRON BEAM MACHINE 1500--DR. BRONSON HERE, CARE TURNED OVER TO HIM 1503--WELDER SETTER ELECTRON BEAM MACHINE TEAM HERE Impression Primary Impression: Acute ST elevation myocardial infarction (STEMI) of inferior wall Additional Impression: Cardiogenic shock Disposition: ADMITTED INPATIENT (TO WELDER SETTER ELECTRON BEAM MACHINE) Condition: Critical Admissions Decision to Admit Reason: Admit from ER (General) (TO WELDER SETTER ELECTRON BEAM MACHINE) Decision to Admit/Date: Nov 18, 2018 Time/Decision to Admit Time: 14:25 Departure-Patient Inst. Referrals: MACK CROW MD (PCP/Family) Primary Care Physician AVTAR MAC DO Nov 18, 2018 14:42
[2018-11-18 14:43] LABS: BASOPHILS # (AUTO) 0.1 10^3/uL (0.0-0.1); BASOPHILS % (AUTO) 0 % (0-10); EOSINOPHILS # (AUTO) 0.5 10^3/uL (0.0-0.3); EOSINOPHILS % (AUTO) 3 % (0-10); HEMATOCRIT 41 % (35-52); HEMOGLOBIN 13.5 G/DL (11.5-16.0); LYMPHOCYTES # (AUTO) 4.2 X 10^3 (1.0-4.0); LYMPHOCYTES % (AUTO) 28 % (12-44); MEAN CORPUSCULAR HEMOGLOBIN 30 PG (25-34); MEAN CORPUSCULAR HGB CONC 33 G/DL (32-36); MEAN CORPUSCULAR VOLUME 91 FL (80-99); MEAN PLATELET VOLUME 9.3 FL (7.4-10.4); MONOCYTES # (AUTO) 1.1 X 10^3 (0.0-1.0); MONOCYTES % (AUTO) 7 % (0-12); NEUTROPHILS # (AUTO) 9.2 X 10^3 (1.8-7.8); NEUTROPHILS % (AUTO) 62 % (42-75); PLATELET COUNT 359 10^3/uL (130-400); RED CELL DISTRIBUTION WIDTH 12.9 % (10.0-14.5)
[2018-11-18] MEDS ORDERED: HEParin DRIP 25000 UNIT/500ML 500 ML IV ONE (14:44)
[2018-11-18] MEDS ORDERED: fentaNYL INJECTION 100 MCG/2 ML AMP IVP ONE (14:45)
[2018-11-18] MEDS ORDERED: DOPamine DRIP 250 ML IV ONE (14:46)
--- NOTE | 2018-11-18 14:49 | NUR ---
DR MAC NOTIFIED OF BP 68/46. PT IS COOL, CLAMMY, DIAPHORETIC AND AGUIRRE IN COLOR. RESPONSIVE.
[2018-11-18] MEDS ORDERED: NOREPINEPHRINE 4 MG/4 ML (LEVOPHED) AMP IV ONE (14:51)
[2018-11-18] MEDS ORDERED: NS (IVPB) 0 ML ONE (14:51)
[2018-11-18 14:54] LABS: PROTHROMBIN TIME PATIENT 13.1 SEC (12.2-14.7)
--- NOTE | 2018-11-18 14:56 | Diagnostic Imaging Report ---
PATIENT HISTORY: Heart attack. TECHNIQUE: Frontal view of the chest. COMPARISON: None. FINDINGS: Lung volumes are mildly low. No focal consolidation is seen. There is no pleural effusion or pneumothorax. The cardiac silhouette is normal in size given technique. Defibrillator pad is seen overlying the right upper chest. IMPRESSION: Mildly low lung volumes with no acute pulmonary abnormality seen. Dictated by: Dictated on workstation # [id number]
[2018-11-18] MEDS ORDERED: ONDANSETRON 4 MG/2 ML (SDV) Z0FRAN IVP ONE ×2 (15:00→17:30)
--- NOTE | 2018-11-18 15:00 | NUR ---
DR BRONSON HERE.
[2018-11-18] MEDS: DOPamine DRIP 250 ML IV SCH ×3 (15:01→22:42)
[2018-11-18] MEDS ORDERED: ONDANSETRON 4 MG/2 ML (SDV) Z0FRAN IV ONE (15:01)
--- NOTE | 2018-11-18 15:02 | NUR ---
ATROPINE 1/[address] BRONSON VERBAL ORDER.
[2018-11-18] MEDS ORDERED: ATROPINE INJECTION 1 MG/10 ML SYR (ABBOTT) ONE (15:09)
[2018-11-18 15:10] LABS: ALBUMIN 3.9 GM/DL (3.2-4.5); BAND NEUTROPHILS 4 %; BASOPHILS % (MANUAL) 0 %; BILIRUBIN,TOTAL 0.5 MG/DL (0.1-1.0); CALCIUM 9.6 MG/DL (8.5-10.1); CREATININE SERUM 1.01 MG/DL (0.60-1.30); EOSINOPHILS % (MANUAL) 3 %; LYMPHOCYTES % (MANUAL) 29 %; MAGNESIUM 1.8 MG/DL (1.6-2.4); MONOCYTES % (MANUAL) 7 %; NEUTROPHILS % (MANUAL) 60 %; POTASSIUM 3.8 MMOL/L (3.6-5.0); RBC MORPH NORMAL; TOTAL PROTEIN 6.8 GM/DL (6.4-8.2)
[2018-11-18] MEDS ORDERED: NS IV 1000 ML 1,000 ML ONE ×3 (15:11→16:18)
[2018-11-18] MEDS ORDERED: niCARdipine 25 MG/10 ML (CARDENE) AMP IV ONE (15:16)
[2018-11-18] MEDS ORDERED: NS (IVPB) 250 ML ONE (15:16)
[2018-11-18 15:22] LABS: CREATINE KINASE MB 1.6 NG/ML (<6.6)
[2018-11-18] MEDS ORDERED: AMIODARONE (OMNICELL DRIP KIT) 150 MG/3 ML IV ONE ×2 (15:37→15:38)
[2018-11-18] MEDS ORDERED: ASPIRIN 81 MG CHEW (CHILDREN'S ASA) ONE (16:20)
[2018-11-18] MEDS ORDERED: NITRO DRIP 25000 MCG/D5W 250 ML IV ONE (16:31)
[2018-11-18] MEDS ORDERED: fentaNYL INJECTION 100 MCG/2 ML AMP ONE (16:32)
[2018-11-18] MEDS ORDERED: MIDAZOLAM 5 MG/5 ML (VERSED) VIAL ONE (16:32)
--- NOTE | 2018-11-18 16:47 | Cardiology History & Physical ---
HPI-Cardiology Cardiology H&P Date of Admission 11/18/18 Primary Care Physician Keenan Jimenez MD Attending Physician Shar Roman MD, MA [facility] Consulting Physician [facility] CC: Chest pain HPI: 63 yo woman with sudden onset of crushing chest pain, severe, never experienced before, associated with diaphoresis and nausea, radiating to shoulder. Her fiance gave her a s/l NTG tab and called EMS. BP found to be low when EMS arrived. Marked ST elevation in in the inf leads. Brought to ER where bp remained low. HR also dropped low. Was treated iv fluids, dopamine and iv atropine. Remained in extremis Review of Systems-Cardiology Review of Systems Constitutional: other (Pt in extremis at time of initial eval and not able to provide a detailed ROS. To the extent it could be obtained is described above) NCA-Lnwvli-Tctfxo Hx Patient Social History Alcohol Use: Occasionally Uses Recreational Drug Use: No Smoking Status: Current Everyday Smoker (1/2 PPD) Recent Foreign Travel: No Recent Infectious Disease Expo: No Immunizations Up To Date Tetanus Booster (TDap): Unknown Past Medical History PMH As described under Assessment. Family Medical History Family History: Patient reports no known family medical history. Allergies and Home Medications Allergies Coded Allergies: No Known Drug Allergies (Verified , 12/29/08) Home Medications Ciprofloxacin Hcl 500 Mg Tablet, 500 MG PO BID Prescribed by: ZAMZAM SALEEM on 01/09/14 1440 Hydrocodone Bit/Acetaminophen 1 Tab Tablet, 1 TAB PO Q4H PRN for PAIN Prescribed by: ZAMZAM SALEEM on 01/09/14 1440 Levothyroxine Sodium 25 Mcg Tablet, 100 MCG PO DAILY, (Reported) Ondansetron 8 Mg Tab.rapdis, 8 MG PO Q6H PRN for NAUSEA/VOMITING Prescribed by: ZAMZAM SALEEM on 01/09/14 1448 Phenazopyridine Hcl 200 Mg Tablet, 1 EACH PO TID PRN for SPASMS Prescribed by: ZAMZAM SALEEM on 01/09/14 1440 Tramadol Hcl 50 Mg Tablet, 50-100 MG PO Q6H PRN for PAIN Prescribed by: JEFF HALLMAN on 06/30/14 1050 Patient Home Medication List Home Medication List Reviewed: Yes Physical Exam-Cardiology Physical Exam Vital Signs/I&O 8/25/11/18/18 11/18/18 11/18/18 14:23 14:32 15:01 15:05 Temp 98.0 Pulse 49 59 71 Resp 16 16 16 B/P (MAP) 87/59 (68) 72/47 122/99 (107) Pulse Ox 98 98 97 O2 Delivery Room Air Nasal Cannula Nasal Cannula O2 Flow Rate 2.00 2.00 Capillary Refill : Less Than 3 Seconds Constitutional: other (in marked distress at time of intial eval, diaphoretic, nauseated, throwing up, unable to answer questions in any detail) HEENT: PERRL; No xanthelasmas are seen Neck: carotid pulses are 2 + bilaterally Respiratory: No accessory muscle use; other (fair bilat air entry, prolonged exp) Cardiovascular: regular rate-rhythm, S1 and S2, systolic murmur (2/6 CRISTÓBAL) Gastrointestinal: No tender; soft; No guarding, No rebound; audible bowel sounds Extremities: No clubbing, No cyanosis, No significant edema Neurologic/Psychiatric: other (see above for mental status exam; seemed to move all limbs equally) Skin: No rash on exposed areas, No ulcerations on exposed areas Data Review Labs Laboratory Tests 11/18/18 14:30: White Blood Count 15.0H, Red Blood Count 4.44, Hemoglobin 13.5, Hematocrit 41, Mean Corpuscular Volume 91, Mean Corpuscular Hemoglobin 30, Mean Corpuscular Hemoglobin Concent 33, Red Cell Distribution Width 12.9, Platelet Count 359, Mean Platelet Volume 9.3, Neutrophils (%) (Auto) 62, Lymphocytes (%) (Auto) 28, Monocytes (%) (Auto) 7, Eosinophils (%) (Auto) 3, Basophils (%) (Auto) 0, Neutrophils # (Auto) 9.2H, Lymphocytes # (Auto) 4.2H, Monocytes # (Auto) 1.1H, Eosinophils # (Auto) 0.5H, Basophils # (Auto) 0.1, Neutrophils % (Manual) 60, Lymphocytes % (Manual) 29, Monocytes % (Manual) 7, Eosinophils % (Manual) 3, Basophils % (Manual) 0, Band Neutrophils 4, Blood Morphology Comment NORMAL, Prothrombin Time 13.1, INR Comment 1.0, Activated Partial Thromboplast Time 22L, Sodium Level 142, Potassium Level 3.8, Chloride Level 107, Carbon Dioxide Level 21, Anion Gap 14, Blood Urea Nitrogen 16, Creatinine 1.01, Estimat Glomerular Filtration Rate 55, BUN/Creatinine Ratio 16, Glucose Level 138H, Calcium Level 9.6, Corrected Calcium 9.7, Magnesium Level 1.8, Total Bilirubin 0.5, Aspartate Amino Transf (AST/SGOT) 14, Alanine Aminotransferase (ALT/SGPT) 15, Alkaline Phosphatase 92, Total Creatine Kinase 48, Creatine Kinase MB 1.6, Myoglobin 38.0, Troponin I 0.059H, B-Type Natriuretic Peptide 34.4, Total Protein 6.8, Albumin 3.9, Amylase Level 27, Lipase 15 Laboratory Tests 11/18/18 14:30 A/P-Cardiology Assessment/Admission Diagnosis Acute ST-elevation inferoposterior myocardial infarction with cardiogenic shock Chronic tobacco use H/o hyperlipidemia H/o hypothyroidism Admission Status: Inpatient Order (span 2 midnights) Reason for Inpatient Admission: Ac inferoposterior DE with cardiogenic shock Discussion and Recomendations * Emergency card cath * Prognosis guarded * Pt in extremis. I discussed the rationale, procedure, potential complications of procedure and prognosis with her fiance and her daughter SHAR ROMAN MD FACP FAC CCDS Nov 18, 2018 16:46
[2018-11-18] MEDS ORDERED: TEMAZEPAM 7.5 MG CAP (RESTORIL) PO PRN (17:00)
[2018-11-18] MEDS ORDERED: ACETAMINOPHEN 325 MG TABLET PO PRN (17:00)
[2018-11-18] MEDS ORDERED: morphine INJ 10 MG/ML 1ML (SYR OR VIAL) IVP PRN (17:00)
[2018-11-18] MEDS ORDERED: PATIENT MAY USE OWN MEDS, ALL PO SCH (17:00)
--- NOTE | 2018-11-18 17:00 | NUR ---
AMIODARONE DRIP TO BE STARTED PER CHEIKH, CARBONIZER RN, WHO STATED THAT DR. BRONSON WANTED DRIP STARTED UPON ARRIVAL TO ROOM. NO BOLUS TO BE GIVEN, ONLY AMIODARONE DRIP PER PROTOCOL.
[2018-11-18] MEDS ORDERED: ONDANSETRON 4 MG/2 ML (SDV) Z0FRAN ONE (17:06)
[2018-11-18] MEDS ORDERED: D5W 100 ML IVPB 0 ML IV ONE (17:12)
[2018-11-18] MEDS ORDERED: D5W IV SOLUTION (EXCEL) 250 ML IV ONE (17:13)
[2018-11-18] MEDS ORDERED: AMIODARONE 450 MG/9 ML (CORDARONE) VIAL IV ONE (17:13)
[2018-11-18 17:15] VITALS: BP 114/76
[2018-11-18] MEDS ORDERED: AMIODARONE INJECTION 450 MG in D5W IV SOLUTION (EXCEL) 250 ML IV SCH (17:15)
[2018-11-18] MEDS: AMIODARONE INJECTION 450 MG in D5W IV SOLUTION (EXCEL) 250 ML IV SCH (17:25)
--- NOTE | 2018-11-18 17:25 | NUR ---
Pt temp 96.4 and constant shivering, bear hugger applied at this time.
[2018-11-18 18:00] VITALS: BP 136/81
[2018-11-18] MEDS: NS IV 1000 ML 1,000 ML IV SCH (18:10)
[2018-11-18 19:00] VITALS: BP 142/88
[2018-11-18 20:00] VITALS: BP 112/58
[2018-11-18] MEDS ORDERED: ENOXAPARIN 40 MG/0.4 ML (LOVENOX) SYR SC ONE (20:00)
[2018-11-18] MEDS ORDERED: METOCLOPRAMIDE INJ 10 MG/2 ML (REGLAN) ONE (20:03)
[2018-11-18] MEDS ORDERED: METOCLOPRAMIDE INJ 10 MG/2 ML (REGLAN) IV PRN (20:45)
[2018-11-18 21:00] VITALS: BP 102/55
[2018-11-18] MEDS: ATORVASTATIN 80 MG (LIPITOR) TABLET PO SCH (21:20)
[2018-11-18] MEDS: FAMOTIDINE 20 MG (PEPCID) TABLET PO SCH (21:20)
--- NOTE | 2018-11-18 22:13 | CARDIAC CATHETERIZATION ---
DATE OF SERVICE: 11/18/2018 CARDIAC CATHETERIZATION AND CORONARY INTERVENTION REPORT The patient is a 63-year-old lady who presented with acute ST elevation myocardial infarction (inferoposterior) to the emergency room. Right from presentation her blood pressure was low, indicating cardiogenic shock. She was treated with intravenous fluids, a dopamine infusion, and intravenous atropine and brought to the cardiac catheterization laboratory for an emergency cardiac catheterization, given continually deteriorating status. DESCRIPTION OF PROCEDURE: The right groin was prepared and draped in the usual sterile fashion. Lidocaine 1% was used for local anesthesia. Modified Seldinger technique was used to advance a 6-Hong Konger sheath in the right femoral artery. We used a 6-Hong Konger JR4 guide catheter to perform diagnostic coronary angiography. Subsequently, percutaneous intervention was carried out in the right coronary artery that is described below. Following completion of the interventional procedure, we carried out diagnostic left coronary angiography with 6-Hong Konger JL4 catheter. We carried out left heart catheterization with a 6-Hong Konger pigtail catheter. Left ventricular angiography was performed. The pigtail was removed. During the procedure, the patient had various arrhythmias, including atrial fibrillation and one episode of ventricular tachycardia. Ventricular tachycardia was associated with hypotension. This was converted to sinus tachycardia with an external shock of 120 joules. The patient received a double bolus of Integrilin during the procedure. She received 5000 units of intravenous heparin just prior to transfer to the cardiac catheterization laboratory and 1000 units per hour heparin infusion was discontinued just at the time of the cardiac catheterization. The patient also received 300 mg of amiodarone at the time of ventricular tachycardia. This was to reduce risk of recurrent ventricular tachycardia. In addition, vigorous normal saline infusion was continued throughout the procedure to maintain blood pressure. We also used intravenous dopamine to support blood pressure. PERCUTANEOUS INTERVENTION TO THE RIGHT CORONARY ARTERY: Right coronary angiography was completely occluded in its proximal portion. We used a 6-Hong Konger JR4 guide catheter with side holes. We advanced a ChoICE floppy wire across the lesion with moderate difficulty. The tip of the wire was placed in the distal vessel. Balloon angioplasty was carried out with Emerge 2.25 x 20 mm balloon. Antegrade flow was restored. There appears to be considerable thrombus in the mid right coronary artery. We removed the balloon and advanced a Pronto suction catheter. Two runs were performed of suction thrombectomy. Considerable thrombus was removed. We then advanced Alpine Xience 3.0 x 28 mm stent to the lesion. This was carefully positioned to cover the lesion. The stent was deployed at 18 atmospheres. Subsequent angiography revealed 0% residual stenosis and flow throughout the vessel is normal. Flow in the right coronary artery prior to the procedure was LEONOR 0. Following completion of the procedure, flow is LEONOR 3. HEMODYNAMICS: Left ventricular end-diastolic pressure following coronary intervention and coronary angiography was 15 mmHg. There is no significant pressure gradient on pullback across the aortic valve. Ascending aortic pressure was approximately 70 mmHg at the conclusion of the procedure. CORONARY ANGIOGRAPHY: Left main coronary artery is heavily calcified. It is diseased through its entire extent and exhibits approximately 50% stenosis. Left anterior descending artery has diffuse moderate disease. Left circumflex artery has diffuse moderate disease. Right coronary artery is large and dominant and was completely occluded in its proximal portion. Following intervention, detailed above, there is no significant residual stenosis in the right coronary artery and flow throughout the vessel was normal. The distal right coronary artery has diffuse moderate disease. LEFT VENTRICULAR ANGIOGRAPHY: Left ventricular angiography was carried out in the right anterior oblique projection. In this view, global left ventricular systolic function appears well preserved and the ejection fraction is approximately 55%. CONCLUSIONS: 1. Inferoposterior myocardial infarction due to proximal occlusion of a large dominant right coronary artery to which successful percutaneous intervention was carried out and, following deployment of Alpine Xience 3.0 x 28 mm stent (deployed at 18 atmospheres), there is no significant residual stenosis and flow throughout the vessel is normal. 2. 50% stenosis of the left main coronary artery and diffuse moderate disease of the left anterior descending in the left circumflex arteries. 3. Well-preserved global left ventricular systolic function with ejection fraction approximately 55%. 4. Elevated left ventricular end-diastolic pressure. DISCUSSION AND RECOMMENDATIONS: She is being hospitalized. Dual antiplatelet therapy and statin therapy has been initiated. Beta jessie therapy will be given if blood pressure allows. Risk factor modification will be reviewed with her. Job ID: [id number] DocumentID: [id number] Dictated Date: 11/18/2018 16:32:39 [employer] Operations Specialist Date: 11/18/2018 22:12:29 Dictated By: MARTIN BRONSON MD, MA, FACP, FACC, MTDD
[2018-11-18 23:00] VITALS: BP 105/68
[2018-11-18] MEDS: ONDANSETRON 4 MG/2 ML (SDV) Z0FRAN IVP PRN (23:14)
[2018-11-19] VITALS (25 sets, daily range): BP systolic 91–147; BP diastolic 60–106
[2018-11-19] MEDS: NS IV 1000 ML 1,000 ML IV SCH ×2 (00:30→12:51)
[2018-11-19] MEDS: AMIODARONE INJECTION 450 MG in D5W IV SOLUTION (EXCEL) 250 ML IV SCH (01:09)
[2018-11-19 03:48] LABS: HEMOGLOBIN 12.3 G/DL (11.5-16.0); MEAN PLATELET VOLUME 9.4 FL (7.4-10.4); RED CELL DISTRIBUTION WIDTH 13.1 % (10.0-14.5); WHITE BLOOD COUNT 13.9 10^3/uL (4.3-11.0)
[2018-11-19 04:07] LABS: BUN/CREATININE RATIO 16; CALCIUM 8.1 MG/DL (8.5-10.1); CARBON DIOXIDE 19 MMOL/L (21-32); CHLORIDE 112 MMOL/L (98-107); CHOLESTEROL 191 MG/DL (< 200); CREATININE SERUM 0.89 MG/DL (0.60-1.30); GFR ESTIMATED > 60; GLUCOSE 152 MG/DL (70-105); HDL CHOLESTEROL 37 MG/DL (40-60); MAGNESIUM 1.8 MG/DL (1.6-2.4); POTASSIUM 4.2 MMOL/L (3.6-5.0); SODIUM 141 MMOL/L (135-145); TRIGLYCERIDES 166 MG/DL (<150); VLDL CHOLESTEROL 33 MG/DL (5-40)
[2018-11-19] MEDS: POTASSIUM CL 10MEQ/50ML IVPB 50 ML IV SCH (05:42)
[2018-11-19] MEDS: KCL 20 MEQ TAB (K-DUR) PO SCH (05:43)
[2018-11-19] MEDS: MAGNESIUM 1 GM/100 ML IVPB 100 ML IV SCH (05:43)
--- NOTE | 2018-11-19 07:53 | Consultation - Hospitalist ---
HPI History of Present Illness: HPI/Chief Complaint Patient is 63-year-old female who presented to the emergency department with a chief complaint of chest pain. She reports that her symptoms started suddenly while washing dishes. She describes it as crushing chest pain that radiated to her arm. She felt short of breath breath and was clammy and nauseous. EMS was called to her home. EKG revealed ST elevation. She was taken emergently to the [facility] from the ER where stent was deployed to the RCA. She was hypotensive on arrival to the ER with BP of 68/46. She is still maintained on a dopamine. She reports feeling much better today. She denies any other medical problems other than hypothyroidism. I am consultation for medical management. Source: patient Exam Limitations: no limitations Date Seen 11/19/18 Attending Physician Shar Roman MD Facp Fac Ccds PCP Keenan Jimenez MD Referring Physician Date of Admission Home Medications & Allergies Home Medications Reviewed patient Home Medication Reconciliation performed by pharmacy medication reconciliations retail merchandiser technician and/or nursing. Patients Allergies have been reviewed. Allergies Allergies Coded Allergies No Known Drug Allergies ([id number]/5/09) Past Idxhvii-Gnmtgv-Depvcs Hx Past Med/Social Hx: Reviewed Nursing Past Med/Soc Hx Patient Social History Alcohol Use: Occasionally Uses Recreational Drug Use: No Smoking Status: Current Everyday Smoker Type Used: Cigarettes Physical Abuse Screen: No Sexual Abuse: No Recent Foreign Travel: No Contact w/other who traveled: No Recent Hopitalizations: Yes Recent Infectious Disease Expo: No Immunizations Up To Date Tetanus Booster (TDap): Unknown Seasonal Allergies Seasonal Allergies: No Past Medical History Surgeries: Gallbladder, Hysterectomy, Oophorectomy, Orthopedic, Renal, Tubal Ligation Cardiac: Hypertension Reproductive: No Genitourinary: Kidney Stones Musculoskeletal: Fractures Endocrine: Hypothyroidsim History of Blood Disorders: No Family History Reviewed Nursing Family Hx Patient reports no known family medical history. Heart Disease, CAD Under 55 Years Old, CAD Over 55 Years Old Review of Systems Constitutional: diaphoresis; No fever; weakness EENTM: no symptoms reported Respiratory: dyspnea on exertion, short of breath Cardiovascular: chest pain; No Hx of Intervention, No vascular heart diseas Gastrointestinal: No abdominal pain, No constipation, No diarrhea; nausea; No vomiting Genitourinary: No dysuria, No frequency Musculoskeletal: no symptoms reported Skin: no symptoms reported Psychiatric/Neurological: No Symptoms Reported Physical Exam Physical Exam Vital Signs Vital Signs - First Documented 11/18/18 11/18/18 14:23 14:32 Temp 98.0 Pulse 49 Resp 16 B/P (MAP) 87/59 (68) Pulse Ox 98 O2 Delivery Room Air O2 Flow Rate 2.00 Capillary Refill : Less Than 3 Seconds Height, Weight, BMI Height: 5'7.00" Weight: 195lbs. 0.4oz. 88.766335ns; 28.4 BMI Method:Stated General Appearance: No Apparent Distress, WD/WN, Mild Distress, Obese, Other (APPEARS LETHARGIC, SKIN DAMP AND PALE) HEENT: PERRL/EOMI, Moist Mucous Membranes; No Scleral Icterus (L), No Scleral Icterus (R) Neck: Normal Inspection; No Thyromegaly Respiratory: Lungs Clear, No Accessory Muscle Use, No Respiratory Distress Cardiovascular: Regular Rate, Rhythm, No JVD, No Murmur Gastrointestinal: Normal Bowel Sounds, Non Tender, Soft Extremity: Normal Capillary Refill, Non Tender, No Calf Tenderness, No Pedal Edema Neurologic/Psychiatric: Alert, Oriented x3, Normal Mood/Affect; No Aphasia, No Facial Droop Skin: Normal Color, Warm/Dry Results Results/Procedures Labs Laboratory Tests 11/18/18 14:30 11/19/18 03:08 11/19/18 03:28 Patient resulted labs reviewed. Imaging: Reviewed Imaging Report Assessment/Plan Assessment and Plan Assess & Plan/Chief Complaint STEMI Cardiogenic Shock Ventricular tachycardia Management per primary s/p stent placement Continue DAPT, statin, BB if BP allows Continue dopamine gtt per cardiology Continue amiodarone gtt per cardiology Hypothyroidism Continue home meds Hyperglycemia A1c ordered Denies history of DM Tobacco abuse Recommended cessation strongly Diagnosis/Problems Diagnosis/Problems (1) Hypothyroidism (2) Hyperglycemia (3) Tobacco abuse (4) Acute ST elevation myocardial infarction (STEMI) of inferior wall Status: Acute (5) Cardiogenic shock Status: Acute Clinical Quality Measures DVT/VTE Risk/Contraindication: Risk Factor Score Per Nursin RFS Level Per Nursing on Admit: 4+=Very High Smoking Cessation Counseling: Counseling-Symptomatic: 3-10 Minutes Discussed Options Including: Chantix, Nicotine Patch, Nicotine Gum LORI MCCORMICK MD Nov 19, 2018 7:53 am
[2018-11-19] MEDS: ASPIRIN 81 MG CHEW (CHILDREN'S ASA) PO SCH (09:02)
[2018-11-19] MEDS: CLOPIDOGREL 75 MG (PLAVIX) TABLET PO SCH (09:02)
[2018-11-19] MEDS: ONDANSETRON 4 MG/2 ML (SDV) Z0FRAN IVP PRN (09:02)
[2018-11-19] MEDS: FAMOTIDINE 20 MG (PEPCID) TABLET PO SCH ×2 (09:02→22:06)
--- NOTE | 2018-11-19 09:44 | Cardiology Progress Note ---
Subjective Date Seen by Provider: Nov 19, 2018 Time Seen by Provider: 09:40 Subjective/Events-last exam Patient is laying down in bed, had mild nausea and dry heaves early in the morning, feeling better at this time, groin is healing well, no chest pain was reported Review of Systems General: No Chills, No Night Sweats, No Fatigue, No Malaise, No Appetite, No Other HEENT: No Head Aches, No Visual Changes, No Eye Pain, No Ear Pain, No Dysphasia, No Sinus Congestion, No Post Nasal Drip, No Sore Throat, No Other Pulmonary: No Dyspnea, No Cough, No Pleuritic Chest Pain, No Other Cardiovascular: No: Chest Pain, Palpitations, Orthopnea, Paroxysmal Noc. Dyspnea, Edema, Lt Headedness, Other Objective-Cardiology Exam Last Set of Vital Signs Vital Signs 11/19/18 11/19/18 11/19/18 11/19/18 03:52 06:00 06:18 07:00 Temp 97.3 Pulse 60 Resp 17 B/P (MAP) 121/77 Pulse Ox 98 O2 Delivery High Flow N/C O2 Flow Rate 9.00 Capillary Refill : Less Than 3 Seconds I&O Intake and Output 11/19/18 00:00 Intake Total 650 ml Output Total 0 ml Balance 650 ml Intake Oral 400 ml IV Total 250 ml Output Urine Total 0 ml # Voids 1 # Emeses 1 Daily Weight Change No General: Alert, Oriented X3, Cooperative HEENT: Atraumatic, PERRLA Neck: Supple, No JVD, No Thyromegaly Lungs: Clear to Auscultation, Normal Air Movement Heart: Regular Rate, Normal S1, Normal S2, No Murmurs, Other (S3 present) Abdomen: Normal Bowel Sounds, Soft, No Tenderness, No Hepatosplenomegaly, No Masses Extremities: No Clubbing, No Cyanosis, No Edema, Normal Pulses, No Tenderness/Swelling Skin: No Rashes, No Breakdown, No Significant Lesion Neuro: Normal Gait, Normal Speech, Strength at 5/5 X4 Ext, Normal Tone, Sensation Intact Psych/Mental Status: Mental Status NL, Mood NL Results Lab Laboratory Tests 11/18/18 14:30 11/19/18 03:08 11/19/18 03:28 A/P-Cardiology Admission Diagnosis Acute ST elevation myocardial infarction Coronary artery disease Hypotension Hyperlipidemia Ventricular tachycardia Assessment/Plan Acute ST elevation myocardial infarction, status post emergency cardiac catheterization and stenting to the right coronary artery using Alpine Xience 3.0 x 28 mm deployed under 18 david with no residual stenosis, good flow post intervention. Coronary artery disease status post occlusion of the right coronary artery with successful intervention using 3.0 x 28 mm to the proximal right artery artery, 50 percent left main coronary artery stenosis with diffuse moderate disease of the LAD and left circumflex artery treated medically at this time. Ventricular tachycardia, probably perfusion arrhythmia, started on amiodarone drip and doing better, continue to monitor on telemetry. Status post hypotension, blood pressure is better, we will wean her off dopamine drip and continue with IV fluid. Hyperlipidemia, maintained on statin Tobaccoism, educated on smoking cessation. Clinical Quality Measures DVT/VTE Risk/Contraindication: Risk Factor Score Per Nursin RFS Level Per Nursing on Admit: 4+=Very High Smoking Cessation Counseling: Counseling-Symptomatic: 3-10 Minutes Discussed Options Including: Chantix, Nicotine Patch, Nicotine Gum TIM VARMA MD Nov 19, 2018 09:44
--- NOTE | 2018-11-19 11:03 | NUR ---
Pastoral care visit.
[2018-11-19] MEDS: DOPamine DRIP 250 ML IV SCH (15:44)
[2018-11-19] MEDS: ATORVASTATIN 80 MG (LIPITOR) TABLET PO SCH (22:06)
[2018-11-20] VITALS: BP 124/75
[2018-11-20 03:29] LABS: HEMOGLOBIN 11.5 G/DL (11.5-16.0); MEAN PLATELET VOLUME 9.6 FL (7.4-10.4); RED CELL DISTRIBUTION WIDTH 13.5 % (10.0-14.5); WHITE BLOOD COUNT 14.8 10^3/uL (4.3-11.0)
[2018-11-20] MEDS: KCL 20 MEQ TAB (K-DUR) PO SCH (03:48)
[2018-11-20] MEDS: POTASSIUM CL 10MEQ/50ML IVPB 50 ML IV SCH (03:48)
[2018-11-20] MEDS: MAGNESIUM 1 GM/100 ML IVPB 100 ML IV SCH (03:48)
[2018-11-20 03:54] LABS: ALANINE AMINOTRANSFERASE 133 U/L (0-55); ALBUMIN 3.2 GM/DL (3.2-4.5); ALKALINE PHOSPHATASE 80 U/L (40-136); BILIRUBIN,TOTAL 0.8 MG/DL (0.1-1.0); BUN/CREATININE RATIO 19; CALCIUM 8.5 MG/DL (8.5-10.1); CARBON DIOXIDE 19 MMOL/L (21-32); CHLORIDE 112 MMOL/L (98-107); GFR ESTIMATED > 60; GLUCOSE 100 MG/DL (70-105); MAGNESIUM 1.5 MG/DL (1.6-2.4); POTASSIUM 4.1 MMOL/L (3.6-5.0); SODIUM 138 MMOL/L (135-145); TOTAL PROTEIN 5.4 GM/DL (6.4-8.2)
[2018-11-20 04:08] VITALS: BP 118/71
[2018-11-20 05:00] VITALS: BP 133/81
[2018-11-20] MEDS: MAGNESIUM 1 GM/D5W 100 ML IVPB IV SCH ×2 (06:09→07:48)
[2018-11-20] MEDS ORDERED: LEVOTHYROXINE 100 MCG (LEVOTHROID) TAB PO SCH (06:30)
[2018-11-20 07:00] VITALS: BP 151/93
[2018-11-20] MEDS ORDERED: FAMO20TA5 PO (07:45)
[2018-11-20] MEDS ORDERED: MAGN400T6 PO (07:45)
[2018-11-20] MEDS ORDERED: ASPI-999 PO (07:45)
[2018-11-20] MEDS ORDERED: MAGNESIUM 1 GM/100 ML IVPB 100 ML IV ONE (07:45)
[2018-11-20] MEDS ORDERED: METO-387 PO (07:45)
[2018-11-20] MEDS ORDERED: CLOP75TA28 PO (07:45)
[2018-11-20] MEDS ORDERED: ATOR10TA PO (07:46)
[2018-11-20] MEDS: FAMOTIDINE 20 MG (PEPCID) TABLET PO SCH (07:47)
[2018-11-20] MEDS: CLOPIDOGREL 75 MG (PLAVIX) TABLET PO SCH (07:47)
--- NOTE | 2018-11-20 07:47 | Discharge Inst-Post CATH ---
Discharge Inst-CATH/EP Problems Reviewed?: Yes Post Cardiac Cath/EP D/C Inst Follow Up/Plan Appointment with Dr. Hunt's office next week <b>CARDIAC CATH/EP PROCEDURE DISCHARGE INSTRUCTIONS</b> ACTIVITY * Go Home directly and rest. * Limit activity of the leg (or wrist if it was used) for 7 days including aerobics, swimming, jogging, bicycling, etc. * Restrict stair-climbing for 7 days if possible, if not, climb up with your non-cath leg, then bring together on the same step. * Avoid lifting, pushing, pulling or excessive movement of the affected extremity for 7 days. * Customary sexual activity may be resumed after 2 days-use caution not to use a position that strains or causes pain to the affected extremity. * No driving for 24 hours. * NO SMOKING. * Avoid straining for bowel movements for 7 days. * Gentle walking on level ground is allowed. * Returning to work will depend on the type of procedure and the results. Your doctor will discuss this with you. CALL YOUR DOCTOR FOR ANY OF THE FOLLOWING: *If bleeding from the puncture site occurs- Apply gentle pressure to site with clean cloth and call your doctor or EMS. * If a knot or lump forms under the skin, increases in size, or causes pain. * If bruising appears to be worsening or moving further down your leg instead of disappearing. * Temperature above 101 F. CARE OF YOUR GROIN INCISION; * Bruising or purple discoloration of the skin near the puncture site is common. * You may shower only, no bathtub bathing for 5 days. Be careful to avoid slipping as your leg may feel stiff. * If a closure device was used on your femoral artery, please see the attached guide regarding care of the device and your leg. * Leave dressing on FOR 24 hours. CARE OF YOUR WRIST INCISION; * Bruising or purple discoloration of the skin near the puncture site is common. * You may shower. * DO NOT submerge wrist. * Leave dressing on FOR 24 hours. TIM HUNT MD Nov 20, 2018 07:47
[2018-11-20] MEDS: ASPIRIN 81 MG CHEW (CHILDREN'S ASA) PO SCH (07:48)
--- NOTE | 2018-11-20 07:52 | Cardiology Discharge Summary ---
Diagnosis/Chief Complaint Date of Admission November 18, 2018 Date of Discharge November 20, [address] elevation myocardial infarction Coronary artery disease Hypotension Hyperlipidemia Ventricular tachycardia Discharge Diagnosis Acute ST elevation myocardial infarction Coronary artery disease Hypertension Hyperlipidemia Chief Complaint/HPI Chief Complaint/HPI 63 yo woman with sudden onset of crushing chest pain, severe, never experienced before, associated with diaphoresis and nausea, radiating to shoulder. Her fiance gave her a s/l NTG tab and called EMS. BP found to be low when EMS arrived. Marked ST elevation in in the inf leads. Brought to ER where bp remained low. HR also dropped low. Was treated iv fluids, dopamine and iv at ro[facility]. Remained in extremis Patient was admitted directly to the catheter lab, underwent emergency cardiac catheterization and stenting, she was hypotensive, started on dopamine drip, had ventricular tachycardia and she was started on amiodarone drip. Currently doing well, off all the drips and doing well. Discharge Summary Hospital Course Was the Problem List Reviewed?: Yes Hospital Course Acute ST elevation myocardial infarction, status post emergency cardiac catheterization and stenting to the right coronary artery using Alpine Xience 3.0 x 28 mm deployed under 18 david with no residual stenosis, good flow post intervention. Coronary artery disease status post occlusion of the right coronary artery with successful intervention using 3.0 x 28 mm to the proximal right artery artery, 50 percent left main coronary artery stenosis with diffuse moderate disease of the LAD and left circumflex artery treated medically at this time. Ventricular tachycardia, probably perfusion arrhythmia, started on amiodarone drip and doing better, has been off amiodarone and doing well. Continue to monitor Status post hypotension, blood pressure is better, off dopamine drip Status post cardiogenic shock, better at this time. Elevated liver enzymes, shock liver probably due to hypotension, could be secondary to amiodarone or Lipitor. I decrease Lipitor to 10 mg daily and stopped amiodarone and we'll monitor liver enzymes. Hyperlipidemia, maintained on statin, decrease Lipitor to 10 mg daily Tobaccoism, educated on smoking cessation. Hypothyroidism, maintained on levothyroxin Hypomagnesemia, prolonged QT interval, replaced and continue to monitor Patient is being discharged today, I educated her in length about her condition and the importance of compliance with medication and taking aspirin and Plavix Labs Laboratory Tests 11/18/18 14:30: White Blood Count 15.0H, Neutrophils # (Auto) 9.2H, Lymphocytes # (Auto) 4.2H, Monocytes # (Auto) 1.1H, Eosinophils # (Auto) 0.5H, Activated Partial Thromboplast Time 22L, Glucose Level 138H, Troponin I 0.059H 11/19/18 03:08: White Blood Count 13.9H, Red Blood Count 4.05L 11/19/18 03:28: Glucose Level 152H, Chloride Level 112H, Carbon Dioxide Level 19L, Calcium Level 8.1L, Triglycerides Level 166H, LDL Cholesterol Direct 140H, HDL Cholesterol 37L 11/20/18 03:02: White Blood Count 14.8H, Troponin I 10.594*H, Red Blood Count 3.78L, Chloride Level 112H, Carbon Dioxide Level 19L, Magnesium Level 1.5L, Aspartate Amino Transf (AST/SGOT) 109H, Alanine Aminotransferase (ALT/SGPT) 133H, Total Protein 5.4L Procedures None. Discharge Physical Examination Allergies: Coded Allergies: No Known Drug Allergies (Verified , 12/29/08) Vitals & I&Os Vital Signs Date Time Temp Pulse Resp B/P (MAP) Pulse Ox O2 Delivery O2 Flow Rate FiO2 11/20/18 06:00 65 15 High Flow N/C 3.00 11/20/18 04:00 97.1 11/19/18 20:07 95 General Appearance: Alert, Oriented X3, Cooperative, No Acute Distress HEENT: Atraumatic, PERRLA Respiratory: Clear to Auscultation, Normal Air Movement Cardiovascular: Regular Rate, Normal S1, Normal S2, No Murmurs Abdominal: Normal Bowel Sounds, Soft, No Tenderness, No Hepatosplenomegaly, No Masses Extremities: No Clubbing, No Cyanosis, No Edema, Normal Pulses, No Tenderness/Swelling Skin: No Rashes, No Breakdown, No Significant Lesion Neuro: Normal Gait, Normal Speech, Strength at 5/5 X4 Ext, Normal Tone, Se nsation Intact, Cranial Nerves 3-12 NL, Reflexes 2+ Psych/Mental Status: Mental Status NL, Mood NL Discharge Home Medications Reviewed and agree with Discharge Medication list on patient's Discharge Instruction sheet Instructions to Patient/Family Please see electronic discharge instructions given to patient. Clinical Quality Measures Admission Status Admission Status: Inpatient Order (span 2 midnights) Reason for Inpatient Admission: Acute ST elevation myocardial infarction DVT/VTE Risk/Contraindication: Risk Factor Score Per Nursin RFS Level Per Nursing on Admit: 4+=Very High Smoking Cessation Counseling: Counseling-Symptomatic: 3-10 Minutes Discussed Options Including: Chantix, Nicotine Patch, Nicotine Gum TIM VARMA MD Nov 20, 2018 07:52
[2018-11-20 08:00] VITALS: BP 134/81
[2018-11-20] MEDS ORDERED: MAGNESIUM OXIDE (MAG-OX)400 MG TAB PO SCH (08:00)
--- NOTE | 2018-11-20 09:15 | NUR ---
Discharge instructions given to pt at this time. Pt escorted by this RN via wheel chair to personal transport. VSS prior to discharge. Personal belongings with pt at time of transfer.
== END 2018-11-20 09:15 | disposition home or self-care (01) | DRG 246 ==
LOC: EDUNIT# 14:23 → ER 14:24 → CATH 14:37 → ICU 14:37 → CATH 16:55 → ICU 11-20 09:15
PROVIDERS: ADMIT Internal Medicine Cardiovascular Disease; ATTEND Internal Medicine Cardiovascular Disease
PROC: 027034Z Dilation of Coronary Artery, One Artery with Drug-eluting Intraluminal Device, Percutaneous Approach (ICD-10-PCS; principal; 2018-11-18)
PROC: 02C03ZZ Extirpation of Matter from Coronary Artery, One Artery, Percutaneous Approach (ICD-10-PCS; 2018-11-18)
PROC: 4A023N7 Measurement of Cardiac Sampling and Pressure, Left Heart, Percutaneous Approach (ICD-10-PCS; 2018-11-18)
PROC: B2111ZZ Fluoroscopy of Multiple Coronary Arteries using Low Osmolar Contrast (ICD-10-PCS; 2018-11-18)
PROC: B2151ZZ Fluoroscopy of Left Heart using Low Osmolar Contrast (ICD-10-PCS; 2018-11-18)
DX: I21.19 ST elevation (STEMI) myocardial infarction involving other coronary artery of inferior wall (principal); R57.0 Cardiogenic shock; I48.91 Unspecified atrial fibrillation; I47.2 Ventricular tachycardia; I10 Essential (primary) hypertension; F17.210 Nicotine dependence, cigarettes, uncomplicated; E03.9 Hypothyroidism, unspecified; E78.5 Hyperlipidemia, unspecified; R73.9 Hyperglycemia, unspecified; E83.42 Hypomagnesemia
CPT/HCPCS: 36415; 71045; 80053; 82150; 82550; 82553; 83690; 83735; 83874; 83880; 84484; 85007; 85027; 85610; 85730; 93005; 93041; 93306; 93458; 99291

== ENCOUNTER → 2020-06-05 | Outpatient (CLI) | payer MEDICARE, OTHER ==
[~2020-06-05] MED LIST changes: +ASPI-999 PO; +ATOR10TA PO; +CLOP75TA28 PO; -CLOPIDOGREL 300 MG (PLAVIX) TABLET PO ONE; +FAMO20TA5 PO; -HEParin 1000 UNIT/ML (10ML VIAL) FOR BOLUS ONE; -HEParin DRIP 25000 UNIT/500ML 500 ML IV ONE; +MAGN400T8 PO; +MTP25TSR PO; -fentaNYL INJECTION 100 MCG/2 ML AMP ONE
== END ==
LOC: CARD 09:03
PROVIDERS: ATTEND Physician Assistant
DX: I25.10 Atherosclerotic heart disease of native coronary artery without angina pectoris (principal)
CPT/HCPCS: 93306

== ENCOUNTER → 2020-06-24 | Outpatient (CLI) | payer MEDICARE, OTHER ==
[~2020-06-24] VITALS: Ht 170 cm; Wt 86.0 kg
[~2020-06-24] MED LIST changes: +CATHETER FLUSH 10 ML SYR IV PRN
[2020-06-24 13:00] VITALS: BP 135/81
--- NOTE | 2020-06-24 14:51 | Cardiology Stress Test Report ---
Stress Test Report Date of Procedure/Referring: Date of Procedure: Jun 24, 2020 Carmela Cannon Admitting Physician No,Local Physician Indications: CAD Baseline Heart Rate: 86 Baseline Blood Pressure: Blood Pressure Systolic: 135 Blood Pressure Diastolic: 81 Vital Signs Date Time Temp Pulse Resp B/P (MAP) Pulse Ox O2 Delivery O2 Flow Rate FiO2 06/24/20 13:00 68 18 135/81 (99) 98 Room Air Baseline Vital Signs Vital Signs Date Time Temp Pulse Resp B/P (MAP) Pulse Ox O2 Delivery O2 Flow Rate FiO2 06/24/20 13:00 68 18 135/81 (99) 98 Room Air Baseline EKG: Baseline EKG: NSR Summary: After explaining the procedure and details to the patient, she signed the consent and was brought to the stress nuclear laboratory. Patient exercised on standard Mundo protocol, EKG, heart rate and blood pressure were monitored continuously, resting and stress doses of radio tracer were injected, imaging was acquired and reviewed in the short axis, horizontal long axis and vertical long axis views Patient was able to exercise for a total of 4 minutes on Mundo protocol, METs 5.8 Maximum heart rate 134 Maximum blood pressure 202/108 Stress EKG, Minimal nondiagnostic changes Recovery EKG, Return to baseline TID: 0.99 SSS: 4 SDS: 1 EF: 64 Conclusion: 1. Good exercise tolerance for a total of 4 minutes on standard Mundo protocol, 5.8 METS achieving 86% of maximal expected heart rate 2. Severe hypertensive response to exercise return to baseline during recovery 3. Minimal nondiagnostic EKG changes with exercise return to baseline during recovery 4. Extracardiac attenuation with typical female pattern, no significant ischemia or infarction on SPECT images 5. Normal left ventricular size, EF 64% TIM VARMA MD Jun 24, 2020 14:51
== END ==
LOC: CARD 11:45
PROVIDERS: ATTEND Physician Assistant
DX: I25.10 Atherosclerotic heart disease of native coronary artery without angina pectoris (principal)
CPT/HCPCS: 78452; 93017; A9502

== ENCOUNTER → 2020-07-15 | Outpatient (CLI) | payer MEDICARE ==
[~2020-07-15] MED LIST changes: -CATHETER FLUSH 10 ML SYR IV PRN
--- NOTE | 2020-07-15 15:14 | Diagnostic Imaging Report ---
INDICATION: Pain. COMPARISON: January 16, 2013. TECHNIQUE: Three radiographs of the lumbar spine dated July 15, 2020. FINDINGS: Five lumbar-type vertebral bodies are present. Alignment of the lumbar spine is well maintained. Minimal vertebral body height loss of T12 is again identified and unchanged since 2012. Scattered endplate degenerative changes are present. Otherwise, vertebral body heights are well maintained. Gfuapwej-qx-ohpopx disc space height loss at L4/L5 and L5/S1, worsened since the prior examination in 2012. Multilevel anterior osteophytes, greatest near the thoracolumbar junction. Multilevel lateral osteophytes are also present, greatest on the left at L3/L4 and greatest on the right at T12/L1. No acute fracture. Scattered facet joint degenerative changes, greatest within the lower lumbar spine. The sacroiliac joints are intact. Moderate degenerative changes of the pubic symphysis. Surgical clips within the right upper quadrant of the abdomen as well as within the right pelvis. Moderate background vascular calcifications. IMPRESSION: No acute osseous abnormality with moderate multilevel degenerative changes as described above, having worsened since the prior examination, particularly at L4/L5. Dictated by: Dictated on workstation # [id number]
--- NOTE | 2020-07-15 15:37 | Diagnostic Imaging Report ---
INDICATION: Pelvic pain. COMPARISON: Imaging from the same date as well as 01/16/2013. TECHNIQUE: Three radiographs of the pelvis and left hip dated 07/15/2020. FINDINGS: Degenerative changes are noted within the partially visualized lower lumbar spine. Mild degenerative changes of the bilateral sacroiliac joints without abnormal widening of the sacroiliac joints. Moderate degenerative changes of the pubic symphysis without abnormal widening. No acute fracture or dislocation. No destructive osseous process. Minimal degenerative changes within the bilateral hips. The left femoral head maintains its normal shape and contour. Multiple phleboliths within the pelvis. Surgical clip again noted within the right pelvis. IMPRESSION: No acute osseous abnormality with scattered osseous degenerative changes, greatest involving the pubic symphysis and partially visualized lower lumbar spine. Dictated by: Dictated on workstation # [id number]
== END ==
LOC: RAD 10:20
PROVIDERS: ATTEND Internal Medicine
DX: M47.816 Spondylosis without myelopathy or radiculopathy, lumbar region (principal); M16.12 Unilateral primary osteoarthritis, left hip
CPT/HCPCS: 72100

== ENCOUNTER → 2020-07-16 | Outpatient (CLI) | payer MEDICARE ==
--- NOTE | 2020-07-16 14:28 | Diagnostic Imaging Report ---
INDICATION: Routine screening. COMPARISON: No prior mammograms are available for comparison. TECHNIQUE: 2D and 3D bilateral screening mammography was performed with CAD. FINDINGS: Scattered fibroglandular densities are identified bilaterally. No mass or malignant appearing microcalcifications are seen. There are benign calcifications. The axillae are unremarkable. IMPRESSION: No mammographic features suspicious for malignancy are identified. ACR BI-RADS Category 2: Benign findings. Result letter will be mailed to the patient. Note: At least 10% of breast cancer is not imaged by mammography. Dictated by: Dictated on workstation # [id number]
== END ==
LOC: RAD 10:28
PROVIDERS: ATTEND Internal Medicine
DX: Z12.31 Encounter for screening mammogram for malignant neoplasm of breast (principal)
CPT/HCPCS: 77063; 77067

== ENCOUNTER → 2021-06-21 | Outpatient (CLI) | payer MEDICARE ==
[~2021-06-21] MED LIST changes: +CATHETER FLUSH 10 ML SYR IVP PRN; -MAGN400T8 PO; +MGX400T PO
[2021-06-21 09:19] VITALS: BP 123/81
--- NOTE | 2021-06-21 11:31 | Cardiology Stress Test Report ---
Stress Test Report Date of Procedure/Referring: Date of Procedure: Jun 21, 2021 Carmela Cannon Admitting Physician No,Local Physician Indications: CAD Baseline Heart Rate: 55 Baseline Blood Pressure: Blood Pressure Systolic: 123 Blood Pressure Diastolic: 81 Vital Signs Date Time Temp Pulse Resp B/P (MAP) Pulse Ox O2 Delivery O2 Flow Rate FiO2 06/21/21 09:19 55 18 123/81 (95) 95 Room Air Baseline Vital Signs Vital Signs Date Time Temp Pulse Resp B/P (MAP) Pulse Ox O2 Delivery O2 Flow Rate FiO2 06/21/21 09:19 55 18 123/81 (95) 95 Room Air Baseline EKG: Baseline EKG: NSR Summary: After explaining the procedure and details to the patient, she signed the consent and was brought to the stress nuclear laboratory. Patient exercised on standard Mundo protocol, EKG, heart rate and blood pressure were monitored continuously, resting and stress doses of radio tracer were injected, imaging was acquired and reviewed in the short axis, horizontal long axis and vertical long axis views Patient was able to exercise for a total of 6 minutes on Mundo protocol, METs 7.3 Maximum heart rate 135 Maximum blood pressure 187/85 Stress EKG, Minimal nondiagnostic changes Recovery EKG, Return to baseline TID: 1.03 SSS: 6 SDS: 6 EF: 68 Conclusion: 1. Fair exercise tolerance for a total of 6 minutes on standard Mundo protocol, 7.3 METS achieving 87% of maximum expected heart rate 2. Appropriate heart rate and blood pressure response to exercise return to ba seline during recovery 3. Nondiagnostic EKG changes with exercise return to baseline during recovery 4. Breast attenuation with mild decrease uptake involving the lateral wall with mild reversibility most probably due to breast attenuation. There is no significant ischemia or infarction on SPECT images 5. Normal left ventricular size, normal contractility, EF 68% TIM VARMA MD Jun 21, 2021 11:31
== END ==
LOC: CARD 07:45
PROVIDERS: ATTEND Physician Assistant
DX: I25.10 Atherosclerotic heart disease of native coronary artery without angina pectoris (principal)
CPT/HCPCS: 78452; 93017; A9502

== ENCOUNTER → 2021-11-05 | Outpatient (CLI) | payer MEDICARE ==
[~2021-11-05] MED LIST changes: -CATHETER FLUSH 10 ML SYR IVP PRN
--- NOTE | 2021-11-05 11:57 | Diagnostic Imaging Report ---
INDICATION: Routine screening. Comparison is made with prior mammogram of 07/14/2020. 2-D and 3-D bilateral screening mammography was performed with CAD. Scattered fibroglandular densities are identified bilaterally. There are benign calcifications bilaterally. No mass or malignant-appearing microcalcifications are seen. Axillae are unremarkable. IMPRESSION: No mammographic features suspicious for malignancy are identified. ACR BI-RADS Category 2: Benign findings. Result letter will be mailed to the patient. Note: At least 10% of breast cancer is not imaged by mammography. BI-RADS Category 2 Dictated by: Dictated on workstation # [id number]
== END ==
LOC: RAD 10:16
PROVIDERS: ATTEND Internal Medicine
DX: Z12.31 Encounter for screening mammogram for malignant neoplasm of breast (principal)
CPT/HCPCS: 77063; 77067

== ENCOUNTER → 2022-12-06 | Outpatient (CLI) | payer MEDICARE ==
--- NOTE | 2022-12-06 19:12 | Diagnostic Imaging Report ---
Indication: Routine screening. Comparison is made with prior mammograms from 11/05/2021 and 07/16/2020. 2-D and 3-D bilateral screening mammography was performed with CAD. Scattered fibroglandular densities are identified bilaterally. The parenchymal pattern is stable. No mass or malignant-appearing microcalcifications are seen. There are benign calcifications present. Axillae are unremarkable. IMPRESSION: BI-RADS Category 2 No mammographic features suspicious for malignancy are identified. ACR BI-RADS Category 2: Benign findings. Result letter will be mailed to the patient. Note: At least 10% of breast cancer is not imaged by mammography. Dictated by: Dictated on workstation # [id number]
== END ==
LOC: RAD 13:55
PROVIDERS: ATTEND Internal Medicine
DX: Z12.31 Encounter for screening mammogram for malignant neoplasm of breast (principal)
CPT/HCPCS: 77063; 77067